=== PATIENT | male | born 1955 | race Caucasian/White ===

== ENCOUNTER 2024-09-06 09:48 | Day surgery (SDC) | payer MEDICARE ==
[~2024-09-06] VITALS: Ht 180.3 cm; Wt 78.0 kg
[~2024-09-06 09:48] MED LIST: ATEN25TA PO; GLIM4TAB5 PO; LOSA100T46 PO; METF-838 PO; SILD100T PO; TAMS1CAP17 PO
[2024-09-06] MEDS: LR 1,000 ML IV SCH (10:27)
[2024-09-06] MEDS ORDERED: GLUCOSE 4 GM CHEW PO PRN (10:40)
[2024-09-06] MEDS ORDERED: GLUCAGON INJ 1 MG VIAL SC PRN (10:40)
[2024-09-06] MEDS ORDERED: INSULIN LISPRO (NovoLOG) PER UNIT SC PRN (10:40)
[2024-09-06] MEDS ORDERED: DEXTROSE 50% 50 ML SYRINGE IV PRN (10:40)
[2024-09-06] MEDS ORDERED: propofoL 200 MG/20 ML VIAL As Ordered ONE (10:58)
[2024-09-06] MEDS ORDERED: LIDOCAINE 2% 100 MG/5 ML SDV (FOR ANES.) As Ordered ONE (10:58)
[2024-09-06] MEDS: BACITRACIN OINTMENT 30 GM TUBE As Ordered ONE (10:59)
[2024-09-06] MEDS ORDERED: MIDAZOLAM INJ 2 MG/2 ML VIAL As Ordered ONE (11:02)
[2024-09-06] MEDS ORDERED: fentaNYL 100 MCG/2 ML INJECTION As Ordered ONE (11:02)
[2024-09-06] MEDS ORDERED: GLYCOPYRROLATE INJ 0.2 MG/ML 2 ML VIAL As Ordered ONE (11:25)
[2024-09-06] MEDS ORDERED: ONDANSETRON 4MG 2ML VIAL As Ordered ONE (11:25)
[2024-09-06] MEDS: ceFAZolin SOD 2 GM IV ONCE IV ONE (11:45)
[2024-09-06] MEDS: BUPIVACAINE HCL 0.25% As Ordered ONE (11:55)
[2024-09-06] MEDS ORDERED: KETOROLAC 30 MG/ML 1 ML VIAL As Ordered ONE (11:59)
[2024-09-06] MEDS: DALBAVANCIN 1,500 MG in D5W 250 ML IV ONE (13:08)
[2024-09-06 13:15] VITALS: BP 130/65; TEMP 97.2; O2SAT 100
== END 2024-09-06 13:45 | disposition home or self-care (01) ==
LOC: M SDC 09:48
PROVIDERS: ATTEND Orthopaedic Surgery Hand Surgery
DX: M86.142 Other acute osteomyelitis, left hand (principal); I10 Essential (primary) hypertension; E11.9 Type 2 diabetes mellitus without complications; E03.9 Hypothyroidism, unspecified; G47.33 Obstructive sleep apnea (adult) (pediatric); N40.0 Benign prostatic hyperplasia without lower urinary tract symptoms; Z79.84 Long term (current) use of oral hypoglycemic drugs; Z79.899 Other long term (current) drug therapy
CPT/HCPCS: 11043; 76000; 87070; 87075; 87077; 87186; 87205; 93005; 96372; J0665; J0690; J0875; J1596; J1885; J2250; J2405; J3010